=== PATIENT | female | born 1975 | race Caucasian/White ===

== ENCOUNTER → 2025-02-09 11:40 | Outpatient (REF) | payer OTHER, SELFPAY | LOC: WDC 11:40 | PROVIDERS: ATTENDING PHYSICIAN Student in an Organized Health Care Education/Training Program; FAMILY PHYSICIAN Nurse Practitioner Family | DX: N92.0 Excessive and frequent menstruation with regular cycle (principal); Z12.31 Encounter for screening mammogram for malignant neoplasm of breast | CPT/HCPCS: 76856; 77063; 77067 ==